=== PATIENT | female | born 1995 | race American Indian/Alaskan Native ===

== ENCOUNTER 2017-04-17 02:23 | Emergency (ER) | payer MEDICAID ==
[2017-04-17 03:23] VITALS: BP 124/74
== END 2017-04-17 08:24 | disposition left against medical advice (07) ==
LOC: ED 02:23
DX: J02.9 Acute pharyngitis, unspecified (principal); Z53.21 Procedure and treatment not carried out due to patient leaving prior to being seen by health care provider
CPT/HCPCS: 87116; 87430

== ENCOUNTER 2017-06-18 18:17 | Emergency (ER) | payer MEDICAID ==
[2017-06-19] MEDS ORDERED: TYLENOL #3 PO ONE (01:12)
[2017-06-19] MEDS ORDERED: KEFLEX PO ONE (01:12)
--- NOTE | 2017-06-19 01:16 | Emergency Department Report ---
HPI - General Chief Complaint: Pain General Time Seen by Provider: 06/19/17 00:44 - HPI HPI: Patient is a 22-year-old female with no prior medical condition presents to ED complaining of left breast pain times today. Patient states around 5 PM today while she was sitting down in her child's doctor's appointment. She started experiencing pain in her left breast. Patient denies any trauma or injuries to the breast. Patient states she had both breasts. For the past 2 years. Patient states though about the last week the left closed and she pushed it open with nipple ring. She denies fevers/chills/nausea/vomiting/abdominal pain/chest pain or any other problems. ED Past Medical Hx - Past Medical History Previous Medical History?: Yes Hx Hypertension: No Hx Congestive Heart Failure: No Hx Diabetes: No Hx Deep Vein Thrombosis: No Hx Renal Disease: No Hx Sickle Cell Disease: No Hx Seizures: No Hx Asthma: Yes Hx COPD: No - Surgical History Past Surgical History?: No - Social History Smoking Status: Never Smoker Substance Use Type: None - Medications Home Medications: Home Medications Medication Instructions Recorded Confirmed Last Taken Type Vitamin 1 tab PO QDAY 05/21/15 05/21/15 05/16/15 History Acetaminophen/Codeine [Tylenol 1 tab PO Q6H #6 tablet 06/19/17 Unknown Rx /Codeine # 3 tab] Cephalexin [Keflex] 500 mg PO BID #20 capsule 06/19/17 Unknown Rx Ibuprofen [Motrin] 800 mg PO Q8HR PRN #30 tablet 06/19/17 Unknown Rx ED Review of Systems ROS: Stated complaint: LEFT BREAST PAIN Other details as noted in HPI Constitutional: denies: chills, fever Eyes: denies: eye pain, eye discharge, vision change ENT: denies: ear pain, throat pain Respiratory: denies: cough, shortness of breath, wheezing Cardiovascular: denies: chest pain, palpitations Endocrine: no symptoms reported Gastrointestinal: denies: abdominal pain, nausea, diarrhea Genitourinary: denies: urgency, dysuria, discharge Musculoskeletal: denies: back pain, joint swelling, arthralgia Skin: denies: rash, lesions Neurological: denies: headache, weakness, paresthesias Psychiatric: denies: anxiety, depression Hematological/Lymphatic: denies: easy bleeding, easy bruising Physical Exam - Physical Exam Vital Signs: Vital Signs 06/18/17 18:23 Temperature 98.4 F Pulse Rate 101 H Respiratory 18 Rate Blood Pressure 129/80 O2 Sat by Pulse 99 Oximetry Physical Exam: GENERAL: Alert and oriented x3, no apparent distress, Normal Gait, atraumatic. HEAD: Head is normocephalic and a-traumatic. LUNGS: Symetrical with respiration, No wheezing, no rales or crackles, CTAB. HEART: S1, S2 present, regular rate and rhythm without murmur, no rubs, no gallops. Non tender to palpation BREAST: Bilateral nipple piercing, Symetrical, less depressed tender to palpation, 3-4 cm mass palpated under the nipple, small pusl-dionicio discharge expelled from the left nipple ring hole . SKIN: Warm and dry, No lesions, No ulceration or induration present. ED Course Vital Signs 06/18/17 18:23 Temperature 98.4 F Pulse Rate 101 H Respiratory 18 Rate Blood Pressure 129/80 O2 Sat by Pulse 99 Oximetry ED Medical Decision Making - Medical Decision Making 22-year-old female presents with left breast Mass consistent with abscess. ED course: Patient received antibiotic and pain medicine ED. Discussed with the patient patient possible abscess due to the presentation. Discussed home medication of antibiotics and pain meds. Discussed follow-up with primary care physician in 3-5 days Discussed patient to follow-up with with breast specialist as discussed. Discussed warm compresses 3 times a day. Discussed to take out the nipple ring and clean Vital signs are normal patient is in no acute distress Discussed the patient if symptoms worsen to return to ED Critical care attestation.: If time is entered above; I have spent that time in minutes in the direct care of this critically ill patient, excluding procedure time. ED Disposition Clinical Impression: Left breast mass, Pain of left breast Disposition: DC-01 TO HOME OR SELFCARE Is pt being admited?: No Does the pt Need Aspirin: No Condition: Stable Instructions: Chest Pain (ED), Breast Abscess Drainage (ED), Abscess (ED) Prescriptions: Acetaminophen/Codeine [Tylenol /Codeine # 3 tab] 1 tab PO Q6H #6 tablet Cephalexin [Keflex] 500 mg PO BID #20 capsule Ibuprofen [Motrin] 800 mg PO Q8HR PRN #30 tablet PRN Reason: Pain Referrals: PRIMARY CARE, [Primary Care Provider] - 3-5 Days OSORIO GUO MD [Referring] - 3-5 Days [facility] [Outside] - 3-5 Days [facility] [Outside] - 3-5 Days RODRIGO ORDONEZ MD [Staff Physician] - 3-5 Days Forms: Accompanied Note, Work/School Release Form(ED) Time of Disposition: 01:34
[2017-06-19 02:06] VITALS: BP 113/68
== END 2017-06-19 02:01 | disposition home or self-care (01) ==
LOC: ED 18:17
DX: N63.23 Unspecified lump in the left breast, lower outer quadrant (principal); N64.4 Mastodynia
CPT/HCPCS: 99282

== ENCOUNTER 2018-11-13 02:24 | Emergency (ER) | payer MEDICAID ==
[2018-11-13 02:33] VITALS: BP 114/51
[2018-11-13] MEDS ORDERED: BOOSTRIX IM ONE (03:48)
[2018-11-13] MEDS ORDERED: ULTRAM PO ONE (03:48)
--- NOTE | 2018-11-13 04:07 | Emergency Department Report ---
- General Chief Complaint: Wound/Laceration Stated Complaint: LEFT INDEX FINGER LACERATION Time Seen by Provider: 11/13/18 03:37 Source: patient Mode of arrival: Ambulatory Limitations: No Limitations - History of Present Illness Initial Comments: Patient.He'll female who presents for laceration to left index finger versus cutting knife the patient was ambulated by the Patient accidentally sliced her finger there is no tendon or muscle involvement No numbness or tingling range of motion is intact last tetanus shot is unknown Onset/Timin -: hour(s) Extremity Location: Left: Hand (index finger ) Place: home Patient Tetanus UTD: No Context: accidental Associated Symptoms: pain - Related Data Home Medications Medication Instructions Recorded Confirmed Last Taken Vitamin 1 tab PO QDAY 05/21/15 05/21/15 05/16/15 Previous Rx's Medication Instructions Recorded Last Taken Type Acetaminophen/Codeine [Tylenol 1 tab PO Q6H #6 tablet 06/19/17 Unknown Rx /Codeine # 3 tab] Ibuprofen [Motrin] 800 mg PO Q8HR PRN #30 tablet 06/19/17 Unknown Rx cephALEXin [Keflex] 500 mg PO BID #20 capsule 06/19/17 Unknown Rx cephALEXin [Keflex] 500 mg PO Q8HR 10 Days #30 cap 11/13/18 Unknown Rx traMADol [Ultram] 50 mg PO Q6HR PRN #12 tablet 11/13/18 Unknown Rx Allergies Allergy/AdvReac Type Severity Reaction Status Date / Time No Known Allergies Allergy Verified 05/19/15 10:45 ED Review of Systems ROS: Stated complaint: LEFT INDEX FINGER LACERATION Other details as noted in HPI Constitutional: denies: chills, fever Eyes: denies: eye pain, eye discharge, vision change ENT: denies: ear pain, throat pain Respiratory: denies: cough, shortness of breath, wheezing Cardiovascular: denies: chest pain, palpitations Endocrine: no symptoms reported Gastrointestinal: as per HPI Genitourinary: denies: urgency, dysuria, discharge Musculoskeletal: other (left index finger). denies: back pain, joint swelling, arthralgia Skin: denies: rash, lesions Neurological: denies: headache, weakness, paresthesias Psychiatric: denies: anxiety, depression Hematological/Lymphatic: denies: easy bleeding, easy bruising ED Past Medical Hx - Past Medical History Previous Medical History?: Yes Hx Hypertension: No Hx Congestive Heart Failure: No Hx Diabetes: No Hx Deep Vein Thrombosis: No Hx Renal Disease: No Hx Sickle Cell Disease: No Hx Seizures: No Hx Asthma: Yes Hx COPD: No - Surgical History Past Surgical History?: No - Social History Smoking Status: Never Smoker Substance Use Type: None - Medications Home Medications: Home Medications Medication Instructions Recorded Confirmed Last Taken Type Vitamin 1 tab PO QDAY 05/21/15 05/21/15 05/16/15 History Acetaminophen/Codeine [Tylenol 1 tab PO Q6H #6 tablet 06/19/17 Unknown Rx /Codeine # 3 tab] Ibuprofen [Motrin] 800 mg PO Q8HR PRN #30 tablet 06/19/17 Unknown Rx cephALEXin [Keflex] 500 mg PO BID #20 capsule 06/19/17 Unknown Rx cephALEXin [Keflex] 500 mg PO Q8HR 10 Days #30 cap 11/13/18 Unknown Rx traMADol [Ultram] 50 mg PO Q6HR PRN #12 tablet 11/13/18 Unknown Rx ED Physical Exam - General Limitations: No Limitations General appearance: alert, in no apparent distress - Head Head exam: Present: atraumatic, normocephalic - Eye Eye exam: Present: normal appearance, PERRL, EOMI Pupils: Present: normal accommodation - ENT ENT exam: Present: mucous membranes moist - Neck Neck exam: Present: normal inspection, full ROM - Respiratory Respiratory exam: Present: normal lung sounds bilaterally. Absent: respiratory distress, stridor, chest wall tenderness - Cardiovascular Cardiovascular Exam: Present: regular rate, normal rhythm, normal heart sounds. Absent: systolic murmur, diastolic murmur, rubs, gallop - GI/Abdominal GI/Abdominal exam: Present: soft, normal bowel sounds. Absent: tenderness, rebound, bruit, hernia - Rectal Rectal exam: Present: deferred - Extremities Exam Extremities exam: Present: normal inspection, tenderness (index finger laceration left ), normal capillary refill - Expanded Upper Extremity Exam Left Hand Wrist exam: Present: laceration (left index finger distal joint laceration superficial no nerver tendon or muscl involvmement rom intct ctr < 3 sec adduduction abduction intact ) - Back Exam Back exam: Present: normal inspection, full ROM - Neurological Exam Neurological exam: Present: alert, oriented X3 - Psychiatric Psychiatric exam: Present: normal affect, normal mood - Skin Skin exam: Present: warm, dry, intact, normal color, other (laceration as above ). Absent: rash ED Course Vital Signs 11/13/18 02:30 Temperature 98.2 F Pulse Rate 68 Respiratory 16 Rate Blood Pressure 114/51 O2 Sat by Pulse 99 Oximetry - Laceration /Wound Repair Left Volar Finger Wound Location: upper extremity Wound Length (cm): 1 Wound's Depth, Shape: superficial Wound Explored: clean Betadine Prep?: Yes Anesthesia: 1% Lidocaine Volume Anesthetic (ccs): 10 Wound Repaired With: sutures Suture Size/Type: 5:0, proline Number of Sutures: 3 Layer Closure?: No Progress: Left index finger distal laceration that was side proximal to fistula superficial laceration elevated as loose anesthesia 1% lidocaine plain 1 mL irrigation with 10 mL sterile saline and closed with 5.0 Prolene 3 sutures diabetes control CMS is intact range of motion is intact abduction and abduction are intact CG less than 3 seconds bilaterally patient given wound care instructions verbalized understanding of same patient tolerated procedure with minimal distress ED Medical Decision Making - Medical Decision Making laceation repair see procedure note all bleeding controlled sterile dressing intact pt tolerated procedure with minimal distress pt given wound care instructions pt dc to home with rx for tramdol , keflex, given tetanus in ed wi ll follow up with pcp in 2 days for wound check and 7 days for suture removal. pt verbalized agreement and understanding of same. Critical care attestation.: If time is entered above; I have spent that time in minutes in the direct care of this critically ill patient, excluding procedure time. ED Disposition Clinical Impression: Laceration of index finger of left hand without complication Qualifiers: Encounter type: initial encounter Qualified Code(s): S61.211A - Laceration without foreign body of left index finger without damage to nail, initial encounter Disposition: DC-01 TO HOME OR SELFCARE Is pt being admited?: No Does the pt Need Aspirin: No Condition: Stable Instructions: Laceration (ED), Suture Care (ED) Prescriptions: cephALEXin [Keflex] 500 mg PO Q8HR 10 Days #30 cap traMADol [Ultram] 50 mg PO Q6HR PRN #12 tablet PRN Reason: Pain Referrals: PRIMARY CARE,MD [Primary Care Provider] - 3-5 Days Forms: Work/School Release Form(ED) Time of Disposition: 04:22
== END 2018-11-13 04:25 | disposition home or self-care (01) ==
LOC: ED 02:24
DX: S61.211A Laceration without foreign body of left index finger without damage to nail, initial encounter (principal); J45.909 Unspecified asthma, uncomplicated; W26.0XXA Contact with knife, initial encounter; Y93.89 Activity, other specified; Y92.89 Other specified places as the place of occurrence of the external cause; Y99.8 Other external cause status
CPT/HCPCS: 90471; 90715

== ENCOUNTER 2019-02-24 19:55 | Emergency (ER) | payer MEDICAID ==
--- NOTE | 2019-02-24 20:06 | Emergency Department Report ---
Blank Doc - Documentation Documentation: 24 y o female presents with nausea, low abd/ pelv pain x today states returned yesterday from [facility] 02/08 labs, ua
[2019-02-24 21:09] LABS: Basophils % (Auto) 0.7 % (0.0-1.8); Eosinophils # (Auto) 0.2 K/mm3 (0.0-0.4); Hematocrit 37.2 % (30.3-42.9); Hemoglobin 12.6 gm/dl (10.1-14.3); Lymphocytes # (Auto) 2.3 K/mm3 (1.2-5.4); Mean Corpuscular HGB Conc 34 % (30-34); Mean Corpuscular Volume 98 fl (79-97); Monocytes # (Auto) 0.4 K/mm3 (0.0-0.8); Monocytes % (Auto) 6.7 % (0.0-7.3); Platelet Count 224 K/mm3 (140-440); Red Blood Count 3.79 M/mm3 (3.65-5.03); Red Cell Distribution Width 12.6 % (13.2-15.2)
[2019-02-24 21:23] LABS: Alanine Aminotransferase 8 units/L (7-56); BUN/Creatinine Ratio 10; Blood Urea Nitrogen 8 mg/dL (7-17); Calcium 9.1 mg/dL (8.4-10.2); Hemolysis Index 24
[2019-02-24 21:24] LABS: Bacteria,Urine 2+ /HPF (Negative); Bilirubin,Urine NEG (Negative); Blood,Urine NEG (Negative); Color,Urine Yellow (Yellow); Mucus,Urine FEW /HPF; Protein,Urine <15 mg/dL mg/dL (Negative); Urobilinogen,Urine < 2.0 mg/dL (<2.0)
[2019-02-24] MEDS ORDERED: IBUPROFEN PO ONE (23:33)
[2019-02-24] MEDS ORDERED: ZOFRAN ODT PO ONE (23:33)
--- NOTE | 2019-02-24 23:34 | Emergency Department Report ---
ED Abdominal Pain HPI - General Chief Complaint: Abdominal Pain Stated Complaint: ABD PAIN HEADACHE Time Seen by Provider: 02/24/19 20:02 Source: family Mode of arrival: Ambulatory Limitations: No Limitations - History of Present Illness Initial Comments: 24 y o female presents with nausea, low abd/ pelv pain x today states returned yesterday from [facility] on 02/08 concerned for illness there is no vaginal discharge no vaginal bleeding no nausea or vomiting. no fever or chills, pt does endorse urinary frequency no hematuria no dysuria no flow problem. MD Complaint: abdominal pain Onset/Timin -: days(s) Location: suprapubic Migration to: suprapubic Severity: moderate Severity scale (0 -10): 3 Quality: aching Consistency: intermittent Improves With: nothing Worsens With: nothing Context: foreign travel, possible food poisoning Associated Symptoms: denies: nausea, vomiting, diarrhea, fever, chills, constip ation, dysuria, hematemesis, hematochezia, melena, syncope - Related Data LMP Date: 01/31/19 Home Medications Medication Instructions Recorded Confirmed Last Taken Vitamin 1 tab PO QDAY 05/21/15 05/21/15 05/16/15 Previous Rx's Medication Instructions Recorded Last Taken Type Acetaminophen/Codeine [Tylenol 1 tab PO Q6H #6 tablet 06/19/17 Unknown Rx /Codeine # 3 tab] Ibuprofen [Motrin] 800 mg PO Q8HR PRN #30 tablet 06/19/17 Unknown Rx cephALEXin [Keflex] 500 mg PO BID #20 capsule 06/19/17 Unknown Rx cephALEXin [Keflex] 500 mg PO Q8HR 10 Days #30 cap 11/13/18 Unknown Rx traMADol [Ultram] 50 mg PO Q6HR PRN #12 tablet 11/13/18 Unknown Rx Ibuprofen [Motrin 800 MG tab] 800 mg PO Q8HR PRN #30 tablet 02/24/19 Unknown Rx Nitrofurantoin Murray/M-Cryst 100 mg PO BID 7 Days #14 capsule 02/24/19 Unknown Rx [Macrobid CAP] Allergies Allergy/AdvReac Type Severity Reaction Status Date / Time No Known Allergies Allergy Verified 05/19/15 10:45 ED Review of Systems ROS: Stated complaint: ABD PAIN HEADACHE Other details as noted in HPI Constitutional: denies: chills, fever Eyes: denies: eye pain, eye discharge, vision change ENT: denies: ear pain, throat pain Respiratory: denies: cough, shortness of breath, wheezing Cardiovascular: denies: chest pain, palpitations Endocrine: no symptoms reported Gastrointestinal: abdominal pain. denies: nausea, vomiting, diarrhea, constipation, hematemesis, melena, hematochezia Genitourinary: denies: urgency, dysuria, discharge Musculoskeletal: denies: back pain, joint swelling, arthralgia Skin: denies: rash, lesions Neurological: denies: headache, weakness, paresthesias Psychiatric: denies: anxiety, depression Hematological/Lymphatic: denies: easy bleeding, easy bruising ED Past Medical Hx - Past Medical History Previous Medical History?: Yes Hx Hypertension: No Hx Congestive Heart Failure: No Hx Diabetes: No Hx Deep Vein Thrombosis: No Hx Renal Disease: No Hx Sickle Cell Disease: No Hx Seizures: No Hx Asthma: Yes Hx COPD: No - Surgical History Past Surgical History?: No - Social History Smoking Status: Never Smoker Substance Use Type: None - Medications Home Medications: Home Medications Medication Instructions Recorded Confirmed Last Taken Type Vitamin 1 tab PO QDAY 05/21/15 05/21/15 05/16/15 History Acetaminophen/Codeine [Tylenol 1 tab PO Q6H #6 tablet 06/19/17 Unknown Rx /Codeine # 3 tab] Ibuprofen [Motrin] 800 mg PO Q8HR PRN #30 tablet 06/19/17 Unknown Rx cephALEXin [Keflex] 500 mg PO BID #20 capsule 06/19/17 Unknown Rx cephALEXin [Keflex] 500 mg PO Q8HR 10 Days #30 cap 11/13/18 Unknown Rx traMADol [Ultram] 50 mg PO Q6HR PRN #12 tablet 11/13/18 Unknown Rx Ibuprofen [Motrin 800 MG tab] 800 mg PO Q8HR PRN #30 tablet 02/24/19 Unknown Rx Nitrofurantoin Murray/M-Cryst 100 mg PO BID 7 Days #14 capsule 02/24/19 Unknown Rx [Macrobid CAP] ED Physical Exam - General Limitations: No Limitations General appearance: alert, in no apparent distress - Head Head exam: Present: atraumatic, normocephalic - Eye Eye exam: Present: normal appearance, PERRL, EOMI Pupils: Present: normal accommodation - ENT ENT exam: Present: normal exam, normal orophraynx, mucous membranes moist, TM's normal bilaterally, normal external ear exam - Neck Neck exam: Present: normal inspection, full ROM. Absent: tenderness, meningismus, lymphadenopathy, thyromegaly - Respiratory Respiratory exam: Present: normal lung sounds bilaterally. Absent: wheezes, stridor, chest wall tenderness - Cardiovascular Cardiovascular Exam: Present: regular rate, normal rhythm, normal heart sounds. Absent: systolic murmur, diastolic murmur, rubs, gallop - GI/Abdominal GI/Abdominal exam: Present: soft, normal bowel sounds. Absent: distended, tenderness, guarding, rebound, rigid, bruit, hernia - Rectal Rectal exam: Present: deferred - External exam: Present: other (exam deferred by patient ) - Extremities Exam Extremities exam: Present: normal inspection, full ROM, normal capillary refill. Absent: tenderness, pedal edema, joint swelling, calf tenderness - Back Exam Back exam: Present: normal inspection, full ROM. Absent: tenderness, CVA tenderness (R), CVA tenderness (L), muscle spasm, paraspinal tenderness, vertebral tenderness, rash noted - Neurological Exam Neurological exam: Present: alert, oriented X3, CN II-XII intact, normal gait, reflexes normal - Psychiatric Psychiatric exam: Present: normal affect, normal mood - Skin Skin exam: Present: warm, dry, intact, normal color. Absent: rash ED Course Vital Signs 02/24/19 20:04 Temperature 98.7 F Pulse Rate 94 H Respiratory 18 Rate Blood Pressure 108/66 O2 Sat by Pulse 100 Oximetry ED Medical Decision Making - Lab Data Result diagrams: 02/24/19 20:29 02/24/19 20:29 Labs 02/24/19 02/24/19 02/24/19 20:17 20:29 20:29 WBC 5.3 RBC 3.79 Hgb 12.6 Hct 37.2 MCV 98 H MCH 33 H MCHC 34 RDW 12.6 L Plt Count 224 Lymph % (Auto) 44.0 H Murray % (Auto) 6.7 Eos % (Auto) 4.0 Baso % (Auto) 0.7 Lymph # 2.3 Murray # 0.4 Eos # 0.2 Baso # 0.0 Seg Neutrophils % 44.6 Seg Neutrophils # 2.3 Sodium 140 Potassium 3.8 Chloride 104.2 Carbon Dioxide 26 Anion Gap 14 BUN 8 Creatinine 0.8 Estimated GFR > 60 BUN/Creatinine Ratio 10 Glucose 84 Calcium 9.1 Total Bilirubin 0.50 AST 16 ALT 8 Alkaline Phosphatase 44 Total Protein 6.6 Albumin 4.0 Albumin/Globulin Ratio 1.5 Lipase HCG, Qual Urine Color Yellow Urine Turbidity Slightly-cloudy Urine pH 6.0 Ur Specific [place] 1.025 Urine Protein <15 mg/dl Urine Glucose (UA) Neg Urine Ketones Neg Urine Blood Neg Urine Nitrite Neg Urine Bilirubin Neg Urine Urobilinogen < 2.0 Ur Leukocyte Esterase Lg Urine WBC (Auto) 8.0 H Urine RBC (Auto) 8.0 U Epithel Cells (Auto) 13.0 Urine Bacteria (Auto) 2+ Urine Mucus Few 02/24/19 02/24/19 20:29 20:29 WBC RBC Hgb Hct MCV MCH MCHC RDW Plt Count Lymph % (Auto) Murray % (Auto) Eos % (Auto) Baso % (Auto) Lymph # Murray # Eos # Baso # Seg Neutrophils % Seg Neutrophils # Sodium Potassium Chloride Carbon Dioxide Anion Gap BUN Creatinine Estimated GFR BUN/Creatinine Ratio Glucose Calcium Total Bilirubin AST ALT Alkaline Phosphatase Total Protein Albumin Albumin/Globulin Ratio Lipase 23 HCG, Qual Negative Urine Color Urine Turbidity Urine pH Ur Specific [place] Urine Protein Urine Glucose (UA) Urine Ketones Urine Blood Urine Nitrite Urine Bilirubin Urine Urobilinogen Ur Leukocyte Esterase Urine WBC (Auto) Urine RBC (Auto) U Epithel Cells (Auto) Urine Bacteria (Auto) Urine Mucus - Medical Decision Making UA: pos for luek wbc, bacteria plan tx for UTI , pt denies vaginal discharge no vaginal bleeding plan dc to home will follow up with pcp in 2-3 days return to ed if symptoms worsen, pt verbalized agreement and understanding of discharge plan. pt dc'd to home in stabld condition at this time. Critical care attestation.: If time is entered above; I have spent that time in minutes in the direct care of this critically ill patient, excluding procedure time. ED Disposition Clinical Impression: UTI (urinary tract infection) Qualifiers: Urinary tract infection type: acute cystitis Hematuria presence: without hematuria Qualified Code(s): N30.00 - Acute cystitis without hematuria Disposition: DC-01 TO HOME OR SELFCARE Is pt being admited?: No Does the pt Need Aspirin: No Condition: Stable Instructions: Abdominal Pain (ED), Urinary Tract Infection in Women (ED) Prescriptions: Nitrofurantoin Murray/M-Cryst [Macrobid CAP] 100 mg PO BID 7 Days #14 capsule Ibuprofen [Motrin 800 MG tab] 800 mg PO Q8HR PRN #30 tablet PRN Reason: pain Referrals: DAYO ROSALES MD [Primary Care Provider] - 3-5 Days Forms: Work/School Release Form(ED) Time of Disposition: 23:50
[2019-02-25 00:02] VITALS: BP 126/88
== END 2019-02-25 00:02 | disposition home or self-care (01) ==
LOC: ED 19:55
DX: N39.0 Urinary tract infection, site not specified (principal); J45.909 Unspecified asthma, uncomplicated; Z79.1 Long term (current) use of non-steroidal anti-inflammatories (NSAID); Z79.899 Other long term (current) drug therapy
CPT/HCPCS: 36415; 80053; 81001; 83690; 84703; 85025; 99283; Q0162

== ENCOUNTER 2019-09-19 00:42 | Emergency (ER) | payer MEDICAID | END 2019-09-19 00:50 | disposition left against medical advice (07) | LOC: ED 00:42 | DX: J02.9 Acute pharyngitis, unspecified (principal); Z53.21 Procedure and treatment not carried out due to patient leaving prior to being seen by health care provider ==